=== PATIENT | male | born 1985 | race African-American/Black ===

== ENCOUNTER 2019-03-14 04:00 | Emergency (ER) | payer OTHER ==
[2019-03-14 04:19] VITALS: BP 113/68; PULSE 69; TEMP 98; BMI 24.0
[2019-03-14 05:47] LABS: INR 0.87 (0.83-1.09); PROTHROMBIN TIME (PATIENT) 10.3 SEC (9.7-13.0)
[2019-03-14] MEDS ORDERED: morphine SULFATE 4 MG/ML VIAL IVPUSH ONE (05:52)
[2019-03-14] MEDS ORDERED: morphine SULFATE 4 MG/ML VIAL ONE (05:54)
[2019-03-14 06:38] LABS: ANION GAP 5 MMOL/L (8-16); BASO % 0.4 % (0-2.0); CALCIUM 8.9 mg/dL (8.5-10.1); CHLORIDE 105 mmol/L (98-107); CO2 29 mmol/L (21-32); EOS % 1.6 % (0-4.5); GLUCOSE,RANDOM 90 mg/dL (74-106); HEMATOCRIT 40.3 % (35.4-49); HEMOGLOBIN 13.2 GM/dL (11.7-16.9); LYMPH % 30.7 % (8-40); MCHC 32.8 g/dl (32.0-35.9); MEAN CELL VOLUME 88.5 fl (80-96); MEAN PLT VOLUME 7.7 fl (7.5-11.1); NEUT % 60.3 % (42.8-82.8); PLATELET COUNT 197 K/MM3 (134-434); POTASSIUM 3.8 mmol/L (3.5-5.1); RBC 4.55 M/mm3 (4.00-5.60); RDW 13.7 % (11.9-15.9); SODIUM 139 mmol/L (136-145); WHITE BLOOD COUNT 5.7 K/mm3 (4.0-10.0)
[2019-03-14 06:39] LABS: ALBUMIN 4.3 g/dl (3.4-5.0); BLOOD UREA NITROGEN 9.9 mg/dL (7-18)
[2019-03-14 06:42] LABS: CREATININE 1.1 mg/dL (0.55-1.3); SGOT/AST 30 U/L (15-37); SGPT/ALT 26 U/L (13-61)
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
[2019-03-14 06:44] LABS: ALK PHOS 92 U/L (45-117); BILIRUBIN,TOTAL 0.4 mg/dL (0.2-1); TOT PROT 7.1 g/dl (6.4-8.2)
[2019-03-14] MEDS ORDERED: SODIUM CHLORIDE 1,000 ML IV STA (06:48)
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
[2019-03-14] MEDS ORDERED: ALBUTEROL SO4 2.5/IPRATROPIUM 0.5 INH SOL 3 ML VIAL.NEB. NEB ONE ×3 (07:54→08:45)
[2019-03-14] MEDS: ALBUTEROL SO4 2.5/IPRATROPIUM 0.5 INH SOL 3 ML VIAL.NEB. NEB SCH ×4 (08:00→08:44)
[2019-03-14] MEDS ORDERED: LIDOCAINE 5% TOPICAL PATCH TP ONE (09:10)
[2019-03-14] MEDS ORDERED: LIDOCAINE 5% TOPICAL PATCH ONE (09:23)
--- NOTE | 2019-03-14 13:49 | EKG ---
Test Reason : Blood Pressure : / mmHG Vent. Rate : 054 BPM Atrial Rate : 054 BPM P-R Int : 150 ms QRS Dur : 092 ms QT Int : 432 ms P-R-T Axes : 068 078 062 degrees QTc Int : 409 ms SINUS BRADYCARDIA EARLY REPOLARIZATION OTHERWISE NORMAL ECG NO PREVIOUS ECGS AVAILABLE Confirmed by MD ROBINSON, TRINITY ([id number]) on 03/14/2019 1:49:10 PM Referred By: Confirmed By:TRINITY BOWERS MD
[2019-03-14] MEDS ORDERED: LIDOCAINE PATCH REMOVAL MC SCH (22:00)
== END 2019-03-14 09:43 | disposition home or self-care (01) ==
LOC: JER 04:00
PROC: 3E0F7GC Introduction of Other Therapeutic Substance into Respiratory Tract, Via Natural or Artificial Opening (ICD-10-PCS; principal; 2019-03-14)
PROC: 3E033NZ Introduction of Analgesics, Hypnotics, Sedatives into Peripheral Vein, Percutaneous Approach (ICD-10-PCS; 2019-03-14)
PROC: 3E0337Z Introduction of Electrolytic and Water Balance Substance into Peripheral Vein, Percutaneous Approach (ICD-10-PCS; 2019-03-14)
DX: S22.39XA Fracture of one rib, unspecified side, initial encounter for closed fracture (principal); Y04.2XXA Assault by strike against or bumped into by another person, initial encounter; Y92.9 Unspecified place or not applicable; Y93.9 Activity, unspecified
CPT/HCPCS: 36415; 70450-TC; 71260-TC; 72125-TC; 74177-TC; 80053; 80307; 82550; 82553; 83605; 84484; 85025; 85610; 86850; 86900; 86901; 93005; 93010; 94640; 96361; 96374; 99284-25; J7030

== ENCOUNTER 2019-06-07 22:25 | Emergency (ER) | payer SELFPAY ==
[2019-06-07 22:34] VITALS: BP 118/63; PULSE 76; TEMP 98.7; BMI 20.9
--- NOTE | 2019-06-07 23:42 | PDOC ---
History of Present Illness - General Chief Complaint: Penile Drainage Stated Complaint: STD Time Seen by Provider: 06/07/19 23:14 History Source: Patient - History of Present Illness Initial Comments: 06/07/19 23:23 33 year old male c/o groin pain, testicular pain and penile discharge. patient here with girlfriend for a possible STD exposure. denies fever / chills. PMHX: asthma 06/08/19 00:48 Past History - Travel Traveled outside of the country in the last 30 days: Yes - Past Medical History Allergies/Adverse Reactions: Allergies Allergy/AdvReac Type Severity Reaction Status Date / Time No Known Allergies Allergy Verified 03/14/19 04:13 Home Medications: Ambulatory Orders Albuterol Sulfate Inhaler - [Ventolin HFA Inhaler -] 1 - 2 inh PO QID PRN #1 inhaler 03/14/19 Ibuprofen [Motrin -] 600 mg PO TID PRN #21 tablet 03/14/19 Oxycodone HCl/Acetaminophen [Percocet 5-325 mg Tablet] 1 tab PO Q6H PRN #12 tablet MDD 4 tabs 03/14/19 Asthma: Yes Cardiac Disorders: No COPD: No Diabetes: No GI Disorders: No HTN: No Psychiatric Problems: Yes (ADHD) Seizures: No - Reproductive History Testicular Surgery: No - Psycho Social/Smoking Cessation Hx Smoking History: Current every day smoker Have you smoked in the past 12 months: Yes Number of Cigarettes Smoked Daily: 4 Information on smoking cessation initiated: No 'Breaking Loose' booklet given: 07/04/12 Hx Alcohol Use: Yes Drug/Substance Use Hx: No Substance Use Type: None Review of Systems - Review of Systems Able to Perform ROS?: Yes Is the patient limited Martiniquais proficient: No Constitutional: No: Symptoms Reported, See HPI, Chills, Diaphoresis, Fever, Loss of Appetite, Malaise, Night Sweats, Weakness, Weight Stable, Unintentional Wgt. Loss, Unexplained wgt Loss, Other : Yes: Dysuria, Testicular Pain *Physical Exam - Vital Signs Last Vital Signs Temp Pulse Resp BP Pulse Ox 98.7 F 76 19 118/63 99 06/07/19 22:31 06/07/19 22:31 06/07/19 22:31 06/07/19 22:31 06/07/19 22:31 - Physical Exam General Appearance: Yes: Appropriately Dressed Respiratory/Chest: positive: Lungs Clear, Normal Breath Sounds Male Genitalia: positive: normal genitalia, other (clear penile discharge, b/l testicular tenderness, ) Musculoskeletal: positive: Normal Inspection Integumentary: positive: Normal Color, Dry, Warm Neurologic: positive: Fully Oriented, Alert, Normal Mood/Affect ED Progress Note - Progress Note Progress Note: 06/08/19 01:04 A: STD exposure P: scrotal US: negative GC UA URine culture urology follow up Discharge - Discharge Information Problems reviewed: Yes Clinical Impression/Diagnosis: Exposure to STD, Testicle pain - Follow up/Referral Referrals: Ronnell Murray MD [Staff Physician] - Call tomorrow - Patient Discharge Instructions Patient Printed Discharge Instructions: How to Detect and Treat STDs Additional Instructions: you were treated for possible chlamydia/gonorrhea exposure. Refrain from Having sex for one week. Your partner should also be treated. we will call you if you test results come back positive. - Post Discharge Activity Work/Back to School Note: Back to Work
[2019-06-08] MEDS ORDERED: AZITHROMYCIN 500 MG TABLET PO ONE (00:02)
[2019-06-08 00:03] LABS: PH,URINE 5.5 (5.0-8.0); URINE BILIRUBIN NEGATIVE (NEGATIVE); URINE COLOR YELLOW; URINE GLUCOSE (UA) NEGATIVE (NEGATIVE); URINE KETONE 1+ (NEGATIVE); URINE LEUK ESTERASE NEGATIVE (NEGATIVE); URINE NITRITE NEGATIVE (NEGATIVE); URINE PROTEIN TRACE (NEGATIVE)
[2019-06-08 00:09] LABS: URINE APPEARANCE CLEAR
[2019-06-08] MEDS ORDERED: AZITHROMYCIN 250 MG TABLET ONE (00:12)
[2019-06-08] MEDS ORDERED: LIDOCAINE HCL 1%, 10 MG/ML (20ML VIAL) ONE (00:12)
[2019-06-08] MEDS ORDERED: cefTRIAXone SODIUM 1 GM VIAL ONE (00:12)
== END 2019-06-08 01:16 | disposition home or self-care (01) ==
LOC: JER 22:25
DX: Z20.2 Contact with and (suspected) exposure to infections with a predominantly sexual mode of transmission (principal); N50.819 Testicular pain, unspecified; J45.909 Unspecified asthma, uncomplicated; F90.9 Attention-deficit hyperactivity disorder, unspecified type; F17.210 Nicotine dependence, cigarettes, uncomplicated
CPT/HCPCS: 36415; 76870-TC; 81003; 87086; 87491; 87591; 99281-25

== ENCOUNTER 2019-11-11 19:26 | Inpatient (IN) | payer OTHER ==
[2019-11-11] MEDS ORDERED: ONDANSETRON 4 MG/2 ML VIAL IVPUSH STA (19:48)
[2019-11-11] MEDS ORDERED: SODIUM CHLORIDE 0.9% 500 ML INFUS.BAG IV ONE (19:49)
--- NOTE | 2019-11-11 19:52 | PDOC ---
History of Present Illness - General Chief Complaint: Nausea/Vomiting Stated Complaint: POSSIBLE FOOD POISONING Time Seen by Provider: 11/11/19 19:44 History Source: Patient Exam Limitations: No Limitations, Clinical Condition - History of Present Illness Initial Comments: Odilon Good is a 34 yo M w a pmh of asthma who presents to the ER with 1 hour of nausea, vomiting, and diarrhea after he ate some chicken that his baked for him. Patient also admits to smoking K2 two hours prior to presentation, however this is normal for him and he does not believe it was laced with anything else. The patient states he felt fine in the hour after smoking K2, but then immediately after eating the chicken he started vomiting and shortly after experiencing watery diarrhea and profuse diaphoresis. The at bedside states she thinks it was fully cooked but is unsure. She states she did not eat the chicken, rather she ahd a burger. The grandma also ate the chicken and is not experiencing any vomiting or diarrhea. The patient also endorses left sided chest pain associated with this vomiting. He reports that taking a deep breath or vomiting hurts his chest tremendously. Denies fever, SOB, palpitation, dizziness, weakness, bladder and bowel problems, leg swelling, numbness or tingling, cough, runny nose, rash. No sick contacts or travel. No new changes in medications. PCP: [facility] [place] Allergies: NKA, NKDA PSH: None reported Social history: K2 use 2 hours ago. Daily tobacco use. Lives with family. No ETOH or illicit drug use. Past History - Past Medical History Allergies/Adverse Reactions: Allergies Allergy/AdvReac Type Severity Reaction Status Date / Time No Known Allergies Allergy Verified 03/14/19 04:13 Home Medications: Ambulatory Orders NK [No Known Home Medication] 02/01/19 Albuterol Sulfate Inhaler - [Ventolin HFA Inhaler -] 1 - 2 inh PO QID PRN #1 inhaler 03/14/19 Ibuprofen [Motrin -] 600 mg PO TID PRN #21 tablet 03/14/19 Oxycodone HCl/Acetaminophen [Percocet 5-325 mg Tablet] 1 tab PO Q6H PRN #12 tablet MDD 4 tabs 03/14/19 Ondansetron [Zofran -] 4 mg PO TID PRN #6 tablet 06/11/19 Asthma: Yes Cardiac Disorders: No COPD: No Diabetes: No GI Disorders: No HTN: No Psychiatric Problems: Yes (ADHD) Seizures: No - Reproductive History Testicular Surgery: No - Psycho Social/Smoking Cessation Hx Smoking History: Never smoked Have you smoked in the past 12 months: No Number of Cigarettes Smoked Daily: 20 'Breaking Loose' booklet given: 07/04/12 Hx Alcohol Use: No Drug/Substance Use Hx: No Substance Use Type: None Review of Systems - Review of Systems Able to Perform ROS?: Yes Comments:: CONSTITUTIONAL: Present: Chills, fatigue Absent: fever EYES: Absent: visual changes ENT: Absent: ear pain, no sore throat CARDIOVASCULAR: Present: Chest pain Absent: no palpitations RESPIRATORY: Absent: cough, no SOB GI: Present: Abdominal pain, nausea, vomiting, diarrhea Absent: no constipation GENITOURINARY: Absent: dysuria, no frequency, no hematuria MUSKULOSKELETAL: Absent: back pain, no arthralgia, no myalgia SKIN: Absent: rash NEURO: Absent: headache *Physical Exam - Physical Exam GENERAL: Patient appears uncomfortable. Profusely diaphoretic. retching at bedside. HEENT: Normocephalic, atraumatic. PERRL, EOM intact. CARDIOVASCULAR: Normal S1, S2. Regular rate and rhythm. PULMONARY: No evidence of respiratory distress. Lungs clear to auscultation bilaterally. No wheezing, rales or rhonchi. ABDOMEN: Soft, non-distended, non-tender. EXTREMITIES: Normal ROM in all four extremities. No gross deformities. SKIN: Profusely diaphoretic. Warm. No rash NEUROLOGICAL: No focal neurological deficits. ED Treatment Course - LABORATORY CBC & Chemistry Diagram: 11/12/19 11:03 11/12/19 11:03 Medical Decision Making - Medical Decision Making Odilon Good is a 34 yo M w a pmh of asthma who presents to the ER with 1 hour of nausea, vomiting, and diarrhea after he ate some chicken that his baked for him. Patient also admits to smoking K2 two hours prior to presentation, however this is normal for him and he does not believe it was laced with anything else. The patient states he felt fine in the hour after smoking K2, but then immediately after eating the chicken he started vomiting and shortly after experiencing watery diarrhea and profuse diaphoresis. The at bedside states she thinks it was fully cooked but is unsure. She states she did not eat the chicken, rather she ahd a burger. The grandma also ate the chicken and is not experiencing any vomiting or diarrhea. The patient also endorses left sided chest pain associated with this vomiting. He reports that taking a deep breath or vomiting hurts his chest tremendously. Vital Signs Temp Pulse Resp BP Pulse Ox 97.2 F L 60 20 110/74 97 11/11/19 19:50 11/11/19 19:50 11/11/19 19:50 11/11/19 19:50 11/11/19 19:50 DDx IBNLT: ACS, electrolyte/metabolic disturbance, drug abuse/use, food poisonin g, electrolyte/metabolic disturbance, dehydration Plan: Labs, EKG, CXR, urine drug screen, IV hydration, supportive treatments, re-assess EKG: Sinus bradycarda rate of 58, narrow complexes, normal axis, no hypertrophy, Diffuse ST elevations in a concave upwards pattern without any reciprocal depre ssions. These likely early repolarizations were all present in 06/11/19. QTc 426, NC 160. Labs: Unremarkable Urine: No infection, PCP pos on u-tox Re-assessment: patient has intractable vomiting despite reglan and zofran Disposition: Admission to hospital for intractable vomiting Discharge - Discharge Information Problems reviewed: Yes Clinical Impression/Diagnosis: Abdominal pain Qualifiers: Abdominal location: generalized Qualified Code(s): R10.84 - Generalized abdominal pain Vomiting Qualifiers: Vomiting type: unspecified Vomiting Intractability: non-intractable Nausea presence: unspecified Qualified Code(s): R11.10 - Vomiting, unspecified Condition: Improved Disposition: HOME - Admission No - Follow up/Referral - Patient Discharge Instructions - Post Discharge Activity
[2019-11-11] MEDS ORDERED: ACETAMINOPHEN 1000 MG/100 ML VIAL (NON FORMULARY) IVPB ONE (19:53)
--- NOTE | 2019-11-11 20:17 | PDOC ---
*Physical Exam - Vital Signs Last Vital Signs Temp Pulse Resp BP Pulse Ox 97.2 F L 60 20 110/74 97 11/11/19 19:50 11/11/19 19:50 11/11/19 19:50 11/11/19 19:50 11/11/19 19:50 ED Treatment Course - LABORATORY CBC & Chemistry Diagram: 11/11/19 20:15 11/11/19 20:15 Medical Decision Making - Medical Decision Making 11/11/19 20:15 34 y/o male here with chest pain, vomiting, diarrhea. States he smoked K2 and cocaine around 4 p.m. this evening. Symptoms started two hours prior to presentation. Partner @ bedside notes chicken was cut from a larger chicken today, she did not clean it. Patient's mother ate chicken as well w/o symptoms. 11/11/19 20:30 EKG w/benign early repolarization no ELIANA/STD/TWI 11/11/19 23:34 Troponin (-) Belly labs negative Leukocytosis (14.1) 11/11/19 23:38 Reassessed @ bedside, NBNB emesis. Will give Reglan 11/12/19 00:50 Reassessed @ bedside. Symptomatically improved, will PO challenge 11/12/19 02:54 Patient continues have NBNB emesis Will admit for intractable vomiting 11/12/19 02:58 Patient admitted to hospitalist service, Dr. Mann. Discharge - Discharge Information Problems reviewed: Yes Clinical Impression/Diagnosis: Abdominal pain Qualifiers: Abdominal location: generalized Qualified Code(s): R10.84 - Generalized abdominal pain Vomiting Qualifiers: Vomiting type: unspecified Vomiting Intractability: non-intractable Nausea presence: unspecified Qualified Code(s): R11.10 - Vomiting, unspecified Condition: Improved Disposition: HOME - Admission No - Follow up/Referral - Patient Discharge Instructions - Post Discharge Activity
[2019-11-11] MEDS ORDERED: ACETAMINOPHEN INJECTION 100 ML IVPB ONE (20:39)
[2019-11-11] MEDS ORDERED: ONDANSETRON 4 MG/2 ML VIAL ONE (20:39)
--- NOTE | 2019-11-11 21:02 | PDOC ---
Attending Attestation - Resident Resident Name: Jason Vincent - ED Attending Attestation I have performed the following: I have examined & evaluated the patient, The case was reviewed & discussed with the resident, I agree w/resident's findings & plan, Exceptions are as noted - HPI HPI: 11/11/19 23:38 See resident HPI - Physicial Exam PE: 11/11/19 23:38 Agree with documented exam - Medical Decision Making 11/11/19 23:38 34M acute onset of n/v, smoked K2 this evening, smokes regularly w/o GI issues usually, ate baked chicken that was eaten by other who do not have symptoms, no sick contacts, recent travel f/u labs IVF, symptomatic tx po challenge re-eval Symptomatically improved Failed PO challenge, pt unable to tolerate PO admit
[2019-11-11 21:12] LABS: BASO % 0.4 % (0-2.0); EOS % 0.2 % (0-4.5); HEMATOCRIT 44.1 % (35.4-49); HEMOGLOBIN 14.5 GM/dL (11.7-16.9); LYMPH % 17.8 % (8-40); MCH 29.6 pg (25.7-33.7); MCHC 32.8 g/dl (32.0-35.9); MEAN CELL VOLUME 90.3 fl (80-96); MEAN PLT VOLUME 7.7 fl (7.5-11.1); MONO % 7.5 % (3.8-10.2); NEUT % 74.1 % (42.8-82.8); PLATELET COUNT 251 K/MM3 (134-434); RBC 4.89 M/mm3 (4.00-5.60); RDW 13.4 % (11.9-15.9)
[2019-11-11 21:20] LABS: ALBUMIN 4.4 g/dl (3.4-5.0); ALK PHOS 92 U/L (45-117); ANION GAP 7 MMOL/L (8-16); BILIRUBIN,TOTAL 0.4 mg/dL (0.2-1); BLOOD UREA NITROGEN 17.5 mg/dL (7-18); CALCIUM 9.8 mg/dL (8.5-10.1); CHLORIDE 104 mmol/L (98-107); CO2 28 mmol/L (21-32); CREATININE 1.3 mg/dL (0.55-1.3); GLUCOSE,RANDOM 139 mg/dL (74-106); PHOSPHOROUS 2.4 mg/dL (2.5-4.9); POTASSIUM 3.7 mmol/L (3.5-5.1); SGOT/AST 30 U/L (15-37); SGPT/ALT 40 U/L (13-61); SODIUM 139 mmol/L (136-145); TOT PROT 7.5 g/dl (6.4-8.2)
[2019-11-11 21:24] LABS: INR 0.92 (0.83-1.09); PROTHROMBIN TIME (PATIENT) 10.8 SEC (9.7-13.0)
[2019-11-11] MEDS ORDERED: ALBUTEROL SO4 2.5/IPRATROPIUM 0.5 INH SOL 3 ML VIAL.NEB. NEB ONE ×3 (22:36→22:55)
[2019-11-11] MEDS ORDERED: METOCLOPRAMIDE HCL 10 MG TABLET (FP) PO ONE ×2 (23:44→23:49)
[2019-11-12 03:20] LABS: URINE APPEARANCE CLOUDY; URINE BILIRUBIN NEGATIVE (NEGATIVE); URINE COLOR YELLOW; URINE GLUCOSE (UA) NEGATIVE (NEGATIVE); URINE KETONE 1+ (NEGATIVE); URINE LEUK ESTERASE NEGATIVE (NEGATIVE); URINE NITRITE NEGATIVE (NEGATIVE); URINE PROTEIN TRACE (NEGATIVE)
[2019-11-12] MEDS ORDERED: ONDANSETRON 4 MG/2 ML VIAL IVPUSH PRN (03:47)
[2019-11-12 03:53] LABS: COCAINE, UR NEGATIVE ng/ml (CUTOFF=300); METHADONE, UR NEGATIVE ng/ml (CUTOFF=300); OPIATES, URI NEGATIVE ng/ml (CUTOFF=300); URINE AMPHETAMINES NEGATIVE ng/ml (CUTOFF=500); URINE BARBITURATES NEGATIVE ng/ml (CUTOFF=200); URINE BENZODIAZEPINES NEGATIVE ng/ml (CUTOFF=200)
--- NOTE | 2019-11-12 03:56 | HP ---
CHIEF COMPLAINT: Vomiting and Diarrhea PCP: None HISTORY OF PRESENT ILLNESS: 34M PMH Asthma who presents today with abdominal pain associated with nausea, vomiting, and diarrhea. Patient reports smoking K2 in the afternoon today, and an hour afterword he began having NBNB emesis and several episodes of diarrhea. He denies any blood in his emesis or stool. He reports eating baked chicken today, that his significant other prepared, however no one else is experiencing these symptoms. He is unable to give a clear timeline of events and description of events due to his pain. He has smoked K2 previously without similar effects. He endorses feeling light headed, chills, left sided chest pain, dysuria, and sh ortness of breath. He denies hematuria, urgency, frequency, fevers, and dizziness. ER course was notable for: (1) Reglan 10, and Zofran 4 were given. Patient initially stopped having emesis, but then after PO challenge he began vomiting again. (2) Patient was given 1 L NS (3) EKG was done- sinus bradycardia (Rate of 58) and QTc of 426 Recent Travel: Denies PAST MEDICAL HISTORY: Asthma FAMILY MEDICAL HISTORY: Denies PAST SURGICAL HISTORY: Denies Social History: Smokin pack year smoking history. currently smokes 1/2 pack daily. Alcohol: Social drinker Drugs: Cocaine and K2 use. Allergies No Known Allergies Allergy (Verified 03/14/19 04:13) Lactose intolerance. HOME MEDICATIONS: Home Medications Medication Instructions Recorded NK [No Known Home Medication] 02/01/19 Albuterol Sulfate Inhaler - 1 - 2 inh PO QID PRN #1 inhaler 03/14/19 [Ventolin HFA Inhaler -] Ibuprofen [Motrin -] 600 mg PO TID PRN #21 tablet 03/14/19 Oxycodone HCl/Acetaminophen 1 tab PO Q6H PRN #12 tablet MDD 4 03/14/19 [Percocet 5-325 mg Tablet] tabs Ondansetron [Zofran -] 4 mg PO TID PRN #6 tablet 06/11/19 REVIEW OF SYSTEMS CONSTITUTIONAL: Present: Chills Absent: fever, chills, diaphoresis, generalized weakness, malaise, loss of appetite, weight change HEENT: Absent: rhinorrhea, nasal congestion, throat pain, throat swelling, difficulty swallowing, mouth swelling, ear pain, eye pain, visual changes CARDIOVASCULAR: Present: chest pain Absent: chest pain, syncope, palpitations, irregular heart rate, lightheadedness, peripheral edema RESPIRATORY: Present: shortness of breath Absent: cough, shortness of breath, dyspnea with exertion, orthopnea, wheezing, stridor, hemoptysis GASTROINTESTINAL: Present: Abdominal pain, nausea, vomiting,diarrhea Absent: abdominal distension, constipation, melena, hematochezia GENITOURINARY: Present: dysuria Absent: frequency, urgency, hesitancy, hematuria, flank pain, genital pain MUSCULOSKELETAL: Absent: myalgia, arthralgia, joint swelling, back pain, neck pain SKIN: Absent: rash, itching, pallor HEMATOLOGIC/IMMUNOLOGIC: Absent: easy bleeding, easy bruising, lymphadenopathy, frequent infections ENDOCRINE: Absent: unexplained weight gain, unexplained weight loss, heat intolerance, cold intolerance NEUROLOGIC: Absent: headache, focal weakness or paresthesias, dizziness, unsteady gait, seizure, mental status changes, bladder or bowel incontinence PSYCHIATRIC: Absent: anxiety, depression, suicidal or homicidal ideation, hallucinations. PHYSICAL EXAMINATION Vital Signs - 24 hr 11/11/19 11/11/19 19:50 23:30 Temperature 97.2 F L Pulse Rate 60 Pulse Rate [ 58 L Left Radial] Respiratory 20 20 Rate Blood Pressure 110/74 Blood Pressure 129/74 [Left Arm] O2 Sat by Pulse 97 100 Oximetry (%) GENERAL: Awake, alert, and fully oriented, in significant pain. HEAD: Normal with no signs of trauma. EYES: Extraocular movements intact, sclera anicteric, NECK: Normal range of motion, supple without lymphadenopathy, JVD, or masses. LUNGS: CTAB. HEART: Regular rate and rhythm, normal S1 and S2 without murmur, rub or gallop. ABDOMEN: Tender to palpation in right and left lower quadrant, and left upper quadrant. Normoactive bowel sounds. Non distended. UPPER EXTREMITIES: 2+ pulses, warm, well-perfused. No cyanosis. No clubbing. No peripheral edema. LOWER EXTREMITIES: 2+ pulses, warm, well-perfused. No calf tenderness. No peripheral edema. NEUROLOGICAL: Cranial nerves II-XII intact. Normal speech. Normal gait. PSYCHIATRIC: Cooperative. Good eye contact. Appropriate mood and affect. SKIN: Warm, dry, normal turgor, no rashes or lesions noted, normal capillary refill. Laboratory Results - last 24 hr 11/11/19 11/11/19 11/11/19 02:00 02:00 20:15 WBC 14.0 H RBC 4.89 Hgb 14.5 Hct 44.1 MCV 90.3 MCH 29.6 MCHC 32.8 RDW 13.4 D Plt Count 251 D MPV 7.7 Absolute Neuts (auto) 10.3 H Neutrophils % 74.1 Lymphocytes % 17.8 Monocytes % 7.5 Eosinophils % 0.2 Basophils % 0.4 Nucleated RBC % 0 PT with INR INR PTT (Actin FS) Sodium Potassium Chloride Carbon Dioxide Anion Gap BUN Creatinine Est GFR (CKD-EPI)AfAm Est GFR (CKD-EPI)NonAf Random Glucose Calcium Phosphorus Magnesium Total Bilirubin AST ALT Alkaline Phosphatase Troponin I Total Protein Albumin Urine Color Yellow Urine Appearance Cloudy Urine pH 8.0 D Ur Specific [place] 1.036 H Urine Protein Trace Urine Glucose (UA) Negative Urine Ketones 1+ H Urine Blood Negative Urine Nitrite Negative Urine Bilirubin Negative Urine Urobilinogen 1.0 Ur Leukocyte Esterase Negative Salicylates Opiates Screen Negative Methadone Screen Negative Acetaminophen Barbiturate Screen Negative Ur Amphetamines Screen Negative MDMA (Ecstasy) Screen Negative Benzodiazepines Screen Negative Cocaine Screen Negative U Marijuana (THC) Screen Negative Alcohol, Quantitative 11/11/19 11/11/19 11/11/19 20:15 20:15 20:15 WBC RBC Hgb Hct MCV MCH MCHC RDW Plt Count MPV Absolute Neuts (auto) Neutrophils % Lymphocytes % Monocytes % Eosinophils % Basophils % Nucleated RBC % PT with INR 10.80 INR 0.92 PTT (Actin FS) 27.0 Sodium 139 Potassium 3.7 Chloride 104 Carbon Dioxide 28 Anion Gap 7 L BUN 17.5 Creatinine 1.3 Est GFR (CKD-EPI)AfAm 81.93 Est GFR (CKD-EPI)NonAf 70.69 Random Glucose 139 H Calcium 9.8 Phosphorus 2.4 L Magnesium Total Bilirubin 0.4 AST 30 ALT 40 Alkaline Phosphatase 92 Troponin I < 0.02 Total Protein 7.5 Albumin 4.4 Urine Color Urine Appearance Urine pH Ur Specific [place] Urine Protein Urine Glucose (UA) Urine Ketones Urine Blood Urine Nitrite Urine Bilirubin Urine Urobilinogen Ur Leukocyte Esterase Salicylates Opiates Screen Methadone Screen Acetaminophen Barbiturate Screen Ur Amphetamines Screen MDMA (Ecstasy) Screen Benzodiazepines Screen Cocaine Screen U Marijuana (THC) Screen Alcohol, Quantitative < 3 11/11/19 11/11/19 11/11/19 20:15 22:01 22:01 WBC RBC Hgb Hct MCV MCH MCHC RDW Plt Count MPV Absolute Neuts (auto) Neutrophils % Lymphocytes % Monocytes % Eosinophils % Basophils % Nucleated RBC % PT with INR INR PTT (Actin FS) Sodium Potassium Chloride Carbon Dioxide Anion Gap BUN Creatinine Est GFR (CKD-EPI)AfAm Est GFR (CKD-EPI)NonAf Random Glucose Calcium Phosphorus Magnesium 2.0 Total Bilirubin AST ALT Alkaline Phosphatase Troponin I < 0.02 Total Protein Albumin Urine Color Urine Appearance Urine pH Ur Specific [place] Urine Protein Urine Glucose (UA) Urine Ketones Urine Blood Urine Nitrite Urine Bilirubin Urine Urobilinogen Ur Leukocyte Esterase Salicylates 4.1 Opiates Screen Methadone Screen Acetaminophen 7.8 Barbiturate Screen Ur Amphetamines Screen MDMA (Ecstasy) Screen Benzodiazepines Screen Cocaine Screen U Marijuana (THC) Screen Alcohol, Quantitative ASSESSMENT/PLAN: 34M PMH Asthma who presents today with abdominal pain associated with nausea, vomiting, and diarrhea. 1) Intractable Vomiting - Likely due to gastroenteritis vs cannabinoid hyperemesis vs possible nephroliathiasis - Endorses only use of K2 today, however utox shows PCP. - Has not been able to tolerate PO intake in the ED - Troponin negative x1, repeat in AM - Lipase negative - U/A shows negative of bacteria and blood. - CT Abdomen/ Pelvis - Protonix 40 mg IV Daily - Zofran 4 mg IV Q4H PRN - Acetaminophen 1000 mg IV Q6H PRN - NS @ 100 ml/hr - Clear liquid diet,advance as tolerated or make NPO. 2) Hx of Asthma - Currently not SOB, given Duonebs in ED - Continue to monitor DVT: SCD's, Early ambulation F: NS @ 100 ml/hr E: Monitor BMP N: Clears, advance as tolerated Visit type - Emergency Visit Emergency Visit: Yes ED Registration Date: 11/12/19 Care time: The patient presented to the Emergency Department on the above date and was hospitalized for further evaluation of their emergent condition. - New Patient This patient is new to me today: Yes Date on this admission: 11/12/19 - Critical Care Critical Care patient: No ATTENDING PHYSICIAN STATEMENT I saw and evaluated the patient. I reviewed the resident's note and discussed the case with the resident. I agree with the resident's findings and plan as documented. SUBJECTIVE: OBJECTIVE: ASSESSMENT AND PLAN:
[2019-11-12 03:59] LABS: PHENCYCLIDINE,URINE POSITIVE ng/ml (CUTOFF=25)
[2019-11-12] MEDS ORDERED: ACETAMINOPHEN 1000 MG/100 ML VIAL (NON FORMULARY) IVPB PRN (04:01)
[2019-11-12] MEDS: SODIUM CHLORIDE 1,000 ML IV SCH ×2 (04:24→17:52)
[2019-11-12] MEDS ORDERED: POTASSIUM PHOSPHATE 15 MM in SODIUM CHLORIDE 250 ML IVPB ONE (04:26)
--- NOTE | 2019-11-12 04:47 | PN ---
Teaching Attending Note Name of Resident: Darcie Brewer ATTENDING PHYSICIAN STATEMENT I saw and evaluated the patient. I reviewed the resident's note and discussed the case with the resident. I agree with the resident's findings and plan as documented. SUBJECTIVE: 34-year-old male with a history of asthma presents complaining of nausea, vomi ting and diarrhea for less than 1 day after he ate chicken, was smoking K2 prior to onset of symptoms. EKG showed some early repolarization's, troponin was negative. Patient continue to have nonbilious nonbloody emesis in the emergency room and was thought to have intractable vomiting. In the emergency room patient was given Reglan, Zofran, IV fluid hydration. Patient was complaining of severe abdominal pain. OBJECTIVE: Last Vital Signs Temp Pulse Resp BP Pulse Ox 97.2 F L 58 L 20 129/74 100 11/11/19 19:50 11/11/19 23:30 11/11/19 23:30 11/11/19 23:30 11/11/19 23:30 On physical exam patient was in some distress, nontoxic-appearing however diaphoretic. Head was negative for any trauma, was normocephalic. Chest was clear to auscultation bilaterally. Cardiovascular exam was S1, S2 with regular rate and rhythm. Abdomen was soft, nontender. Lower extremities did not have any pedal edema Abnormal Lab Results 11/11/19 11/11/19 11/11/19 02:00 02:00 20:15 WBC 14.0 H Absolute Neuts (auto) 10.3 H Anion Gap Random Glucose Phosphorus Ur Specific [place] 1.036 H Urine Ketones 1+ H Phencyclidine Screen Positive A* 11/11/19 11/11/19 20:15 20:15 WBC Absolute Neuts (auto) Anion Gap 7 L Random Glucose 139 H Phosphorus 2.4 L Ur Specific [place] Urine Ketones Phencyclidine Screen Chest x-ray reviewed EKG showed sinus bradycardia no acute ischemic changes. Possible early repolarization. ASSESSMENT AND PLAN: 34-year-old male with acute onset of vomiting following chicken meal and K2 smoking. PCP positive on urine toxicology screen. Possible gastroenteritis secondary to food poisoning versus drug toxicity. Severe abdominal pain warrants imaging as well as lipase. Admit to MedSurg IV fluid hydration Abdomen and pelvis CT without contrast patient has DEANN Supplement phosphorus #Asthma exacerbation Prednisone 40 mg daily DuoNebs 6 hours #Polysubstance abuse with PCP Check CK to rule out rhabdomyolysis Continue IV fluid hydration #DEANN IV fluid hydration avoid nephrotoxins #Leukocytosissuspect may be reactive secondary to vomiting. Should rule out intra-abdominal pathology in light of diarrhea and severe pain Monitor off antibiotics at this time Repeat CBC Follow-up abdominal CT results DVT prophylaxisheparin subcutaneously
[2019-11-12 05:00] LABS: LIPASE 35 U/L (73-393)
[2019-11-12] MEDS ORDERED: ALBUTEROL SO4 2.5/IPRATROPIUM 0.5 INH SOL 3 ML VIAL.NEB. NEB PRN (06:07)
[2019-11-12 09:31] VITALS: BMI 22.6
[2019-11-12] MEDS: PANTOPRAZOLE SODIUM 40 MG VIAL IVPUSH SCH (09:33)
--- NOTE | 2019-11-12 11:12 | EKG ---
Test Reason : Blood Pressure : / mmHG Vent. Rate : 058 BPM Atrial Rate : 058 BPM P-R Int : 160 ms QRS Dur : 108 ms QT Int : 434 ms P-R-T Axes : 071 079 057 degrees QTc Int : [address] ELEVATION, CONSIDER EARLY REPOLARIZATION WHEN COMPARED WITH ECG OF 14-MAR-2019 07:15, NO SIGNIFICANT CHANGE WAS FOUND Confirmed by NELIA KWAN MD ([id number]) on 11/12/2019 11:12:16 AM Referred By: Confirmed By:NELIA KWAN MD
[2019-11-12 11:32] LABS: BASO % 0.1 % (0-2.0); HEMATOCRIT 40.9 % (35.4-49); HEMOGLOBIN 13.6 GM/dL (11.7-16.9); LYMPH % 7.4 % (8-40); MCH 29.7 pg (25.7-33.7); MCHC 33.3 g/dl (32.0-35.9); MEAN CELL VOLUME 89.1 fl (80-96); MEAN PLT VOLUME 7.5 fl (7.5-11.1); MONO % 4.5 % (3.8-10.2); PLATELET COUNT 230 K/MM3 (134-434); RBC 4.59 M/mm3 (4.00-5.60); RDW 13.5 % (11.9-15.9); WHITE BLOOD COUNT 8.3 K/mm3 (4.0-10.0)
[2019-11-12 12:22] LABS: ANION GAP 9 MMOL/L (8-16); BLOOD UREA NITROGEN 15.7 mg/dL (7-18); CALCIUM 8.9 mg/dL (8.5-10.1); CHLORIDE 101 mmol/L (98-107); CO2 27 mmol/L (21-32); GLUCOSE,RANDOM 126 mg/dL (74-106); LIPASE 194 U/L (73-393); POTASSIUM 4.2 mmol/L (3.5-5.1); SODIUM 137 mmol/L (136-145)
[2019-11-12 12:23] LABS: CREATININE 1.1 mg/dL (0.55-1.3); PHOSPHOROUS 3.1 mg/dL (2.5-4.9)
--- NOTE | 2019-11-12 13:58 | PN ---
Physical Exam: SUBJECTIVE: Patient seen and examined at bedside.pt was vomiting . pt states he was fine for a few hours then became nauseated again and vomiting. >3 x this am OBJECTIVE: Vital Signs Period Temp Pulse Resp BP Sys/Burden Pulse Ox Last 24 Hr 97.2 F-98.6 F 58-65 16-20 110-133/69-83 97-100 GENERAL: The patient is awake, alert, and fully oriented, in no acute distress. HEAD: Normal with no signs of trauma. LUNGS: Breath sounds equal, clear to auscultation bilaterally, no wheezes, no crackles, no accessory muscle use. HEART: Regular rate and rhythm, S1, S2 without murmur, rub or gallop. ABDOMEN: Soft, ttp at LLQ RUQ and Epigastric region. nondistended, normoactive bowel sounds, no guarding EXTREMITIES: 2+ pulses, warm, well-perfused, no edema. SKIN: Warm, dry, normal turgor, no rashes or lesions noted Rectal:pt refused CBC, BMP 11/12/19 11:03 11/12/19 11:03 Active Medications Generic Name Dose Route Start Last Admin Trade Name Freq PRN Reason Stop Dose Admin Acetaminophen 1,000 mg 11/12/19 04:01 11/12/19 08:30 Ofirmev Injection - IVPB 11/13/19 04:01 1,000 mg Q6H PRN Administration PAIN LEVEL 6-10 Albuterol/Ipratropium 1 amp 11/12/19 06:07 11/12/19 06:27 Duoneb - NEB 1 amp Q4H PRN Administration SHORTNESS OF BREATH Sodium Chloride 1,000 mls @ 100 mls/hr 11/12/19 04:00 11/12/19 04:24 Normal Saline - IV 100 mls/hr ASDIR STEVE Administration Ondansetron HCl 4 mg 11/12/19 03:47 11/12/19 08:33 Zofran Injection IVPUSH 4 mg Q4H PRN Administration NAUSEA Pantoprazole Sodium 40 mg 11/12/19 10:00 11/12/19 09:33 Protonix Iv IVPUSH 40 mg DAILY STEVE Administration ASSESSMENT/PLAN: 34M PMH Asthma who presents with abdominal pain associated with nausea, vomiti ng, and diarrhea. Intractable Vomiting/ gastroparesis - Likely due to viral vs cannabinoid hyperemesis? - Utox positive for PCP - multiple episodes of n/v. unable to tolerate PO today - CT abdomen/ pelvis: Interval decrease in number of previously described hyperdensities within the stomach lumen. There are now likely 3 hyperdense foci seen layering within the junction of the gastric fundus and body. Differential diagnosis includes a small pieces of ingested bone or medication pills. Correlate clinically. No free air or free fluid are identified within the abdomen and pelvis. - Protonix 40 mg IV Daily - Zofran 4 mg IV Q4H PRN alternate with compazine - Acetaminophen 1000 mg IV Q6H PRN - NS @ 100 ml/hr - went for EGD today, no foreign object found. pt on low/ intermittent suction. will be revaluated will clamp suction/ remove NGT and start clears. if high output will continue NGT with low /intermittent suction Hx of Asthma - Currently not SOB, given Duonebs in ED - Continue to monitor DVT: SCD's, Early ambulation F: NS @ 100 ml/hr E: Monitor BMP N: NPO Visit type - Emergency Visit Emergency Visit: No - New Patient This patient is new to me today: No - Critical Care Critical Care patient: No - Discharge Referral Referred to [facility] Yes Physician Referral: Dax Salamanca DO (GI) ATTENDING PHYSICIAN STATEMENT I saw and evaluated the patient. I reviewed the resident's note and discussed the case with the resident. I agree with the resident's findings and plan as documented. SUBJECTIVE: OBJECTIVE: ASSESSMENT AND PLAN:
--- NOTE | 2019-11-12 14:07 | CON.GI ---
Consult Consult Specialty:: GI Referred by:: Hospitalist Service Reason for Consultation:: Vomiting and foreign body in stomach - History of Present Illness Chief Complaint: vomiting History of Present Illness: 34M admittted for evaluation of vomiting. States that he "smoked a cigarette someone gave him that may have had K2 in it, felt fucked up and ate chicken". The chicken may have had bones. He was then having episodes of vomiting. CT scan revealed retained food in the stomach and bony densities in the stomach that could represent teeth. That study was performed 5:30 in the morning. He denies having lost any teeth recently. He vomited 800cc since being admitted to the floor. Urine tox positive for PCP. complains of abdominal pain. No diarrhea. - History Source History Provided By: Patient, Medical Record - Past Medical History Pulmonary: Yes: Asthma - Past Surgical History Additional Surgical History: surgery on scalp after accident - Alcohol/Substance Use Hx Alcohol Use: No History of Substance Use: reports: Marijuana (also abuses K-2, synthetic marijuana) - Smoking History Smoking history: Current some day smoker Have you smoked in the past 12 months: No Aproximately how many cigarettes per day: 20 - Social History ADL: Independent Place of : [facility] History of Recent Travel: No Home Medications - Allergies Allergies/Adverse Reactions: Allergies Allergy/AdvReac Type Severity Reaction Status Date / Time No Known Allergies Allergy Verified 03/14/19 04:13 - Home Medications Home Medications: Ambulatory Orders NK [No Known Home Medication] 02/01/19 Albuterol Sulfate Inhaler - [Ventolin HFA Inhaler -] 1 - 2 inh PO QID PRN #1 inhaler 03/14/19 Ibuprofen [Motrin -] 600 mg PO TID PRN #21 tablet 03/14/19 Oxycodone HCl/Acetaminophen [Percocet 5-325 mg Tablet] 1 tab PO Q6H PRN #12 tablet MDD 4 tabs 03/14/19 Ondansetron [Zofran -] 4 mg PO TID PRN #6 tablet 06/11/19 Family Medical History Family History: Unremarkable Review of Systems - Review of Systems Cardiovascular: denies: Chest Pain Respiratory: denies: SOB Gastrointestinal: reports: Abdominal Pain, Nausea, Vomiting. denies: Melena Physical Exam-GI Vital Signs: Vital Signs Temperature 98.6 F 03/06/20 09:24 Pulse Rate 63 11/12/19 09:24 Respiratory Rate 20 11/12/19 09:24 Blood Pressure 130/69 11/12/19 09:24 O2 Sat by Pulse Oximetry (%) 100 11/12/19 09:30 Constitutional: Yes: Calm Eyes: No: Sclera Icterus Cardiovascular: Yes: Regular Rate and Rhythm Respiratory: Yes: CTA Bilaterally Gastrointestinal Inspection: No: Distention ...Auscultate: Yes: Normoactive Bowel Sounds ...Palpate: Yes: Soft, Tenderness (TTP mid abdomen). No: Hepatomegaly, Splenomegaly ...Percussion: No: Tympanitic Labs: CBC, BMP 11/12/19 11:03 11/12/19 11:03 INR, PTT INR 0.92 (0.83-1.09) 11/11/19 20:15 Problem List - Problems (1) Vomiting Assessment/Plan: ? if related to whatever he smoked prior to eating. Urine tox + for PCP Ordered repeat CT scan to evaluate if there is still suggestion of fer foreign body in his stomach. He does believes that the chicken he ate may have had bones. If so, discussed possible upper endoscopy to evaluate further and extract foreign body if necessary. Discussed potential risks of the the proce dure like but not limited to bleeding, perforation requiring surgery to repair, infection, sedation medication effects all of which could be potentially life threatening. He has agreed to the procedure. Otherwise: Supportive measures Detox evaluation NPO IV hydration Code(s): R11.10 - VOMITING, UNSPECIFIED Qualifiers: Vomiting type: unspecified Vomiting Intractability: non-intractable Nausea presence: unspecified Qualified Code(s): R11.10 - Vomiting, unspecified
--- NOTE | 2019-11-12 14:43 | PN ---
Progress Note (short form) - Note Progress Note: D/W attending. Bone like densities persist in stomach. one is about 1cm in size. Stomach fluid filled. 1. NGT to decompress stomach 2. EGD to evaluate stomach once deompressed to make sure these are not sharp bone fragments lingering in his sstomach Problem List - Problems (1) Vomiting Code(s): R11.10 - VOMITING, UNSPECIFIED Qualifiers: Vomiting type: unspecified Vomiting Intractability: non-intractable Nausea presence: unspecified Qualified Code(s): R11.10 - Vomiting, unspecified
--- NOTE | 2019-11-12 15:04 | PN ---
Teaching Attending Note Name of Resident: Sharee Yen ATTENDING PHYSICIAN STATEMENT I saw and evaluated the patient. I reviewed the resident's note and discussed the case with the resident. I agree with the resident's findings and plan as documented. SUBJECTIVE: No fever or chills. cont to have N/v. abd pain in epigastric area. he does not remember if the chicken he ate has bones He did not feel well and did not want t participate further in the conversation OBJECTIVE: NAD, awake, alert, not completely cooperative. uses curing words during interview. MMM CV: RRR, no MRG Lungs: CTAB Abd: sot, ND, TTP in epigastric and RUQ and LUQ. tympanic in upper part of Abd. nl BS ASSESSMENT AND PLAN: 34 y/o man with h/o asthma, and drug abuse ( PCP , K2) , who presented with abd pain and N/V. 1- N/V/Abd pain : Cyclic vomiting from K2 use ( use QOD), or gastroparesis, or gastric outlet obstruction CT scan reviewed. GI consulted due to distended stomach and foreign bodies. repeat Ct scan is not read but still shows 2 of the 3 foreign bodies . ? chicken bones. EGD might be planned today NPO IVF zofran and add compazine 2- h/o Asthma : No wheezing. - cont inhalers . no need for steroids unless exam changes 3- leukocytosis : Possibly reactive. hold off Abx 4- DVT Px: start heparin after EGD SCDs for now
--- NOTE | 2019-11-12 16:29 | PN ---
Progress Note (short form) - Note Progress Note: EGD complete. Report left in procedural section of the physical chart and will be scanned into [employer]. Prior to EGD, NGT was placed. 900 CC of bilious fluid was removed. NGT was replaced after endoscopy was performed. Problem List - Problems (1) Vomiting Code(s): R11.10 - VOMITING, UNSPECIFIED Qualifiers: Vomiting type: unspecified Vomiting Intractability: non-intractable Nausea presence: unspecified Qualified Code(s): R11.10 - Vomiting, unspecified
[2019-11-13 06:37] LABS: HEMATOCRIT 42.4 % (35.4-49); HEMOGLOBIN 14.3 GM/dL (11.7-16.9); MCH 29.9 pg (25.7-33.7); MCHC 33.6 g/dl (32.0-35.9); MEAN CELL VOLUME 88.9 fl (80-96); MEAN PLT VOLUME 7.6 fl (7.5-11.1); PLATELET COUNT 231 K/MM3 (134-434); RBC 4.77 M/mm3 (4.00-5.60); RDW 13.6 % (11.9-15.9); WHITE BLOOD COUNT 9.8 K/mm3 (4.0-10.0)
[2019-11-13 07:02] LABS: ALBUMIN 3.7 g/dl (3.4-5.0); BILIRUBIN,TOTAL 0.9 mg/dL (0.2-1); BLOOD UREA NITROGEN 14.5 mg/dL (7-18); CALCIUM 8.6 mg/dL (8.5-10.1); MAGNESIUM 2.2 mg/dL (1.8-2.4); PHOSPHOROUS 2.5 mg/dL (2.5-4.9); TOT PROT 6.7 g/dl (6.4-8.2)
[2019-11-13] MEDS: PANTOPRAZOLE SODIUM 40 MG VIAL IVPUSH SCH (10:07)
[2019-11-13] MEDS: SODIUM CHLORIDE 1,000 ML IV SCH (10:07)
--- NOTE | 2019-11-13 11:52 | DS ---
Physical Exam: SUBJECTIVE: Patient seen and examined OBJECTIVE: Vital Signs Period Temp Pulse Resp BP Sys/Burden Pulse Ox Last 24 Hr 98.0 F-98.8 F 66-75 13-20 120-152/52-67 95-99 PHYSICAL EXAM GENERAL: The patient is awake, alert, and fully oriented, in no acute distress. HEAD: Normal with no signs of trauma. EYES: PERRL, extraocular movements intact, sclera anicteric, conjunctiva clear. ENT: Ears normal, nares patent, oropharynx clear without exudates, moist mucous membranes. NECK: Trachea midline, full range of motion, supple. LUNGS: Breath sounds equal, clear to auscultation bilaterally, no wheezes, no crackles, no accessory muscle use. HEART: Regular rate and rhythm, S1, S2 without murmur, rub or gallop. ABDOMEN: Soft, nontender, nondistended, normoactive bowel sounds, no guarding, no rebound, no hepatosplenomegaly, no masses. EXTREMITIES: 2+ pulses, warm, well-perfused, no edema. NEUROLOGICAL: Cranial nerves II through XII grossly intact. Normal speech, gait not observed. PSYCH: Normal mood, normal affect. SKIN: Warm, dry, normal turgor, no rashes or lesions noted. LABS Laboratory Results - last 24 hr 11/12/19 11/13/19 11/13/19 11:03 06:15 06:15 WBC 9.8 RBC 4.77 Hgb 14.3 Hct 42.4 MCV 88.9 MCH 29.9 MCHC 33.6 RDW 13.6 Plt Count 231 MPV 7.6 Sodium 137 139 Potassium 4.2 4.0 Chloride 101 106 Carbon Dioxide 27 27 Anion Gap 9 6 L BUN 15.7 14.5 Creatinine 1.1 1.0 Est GFR (CKD-EPI)AfAm 100.27 112.51 Est GFR (CKD-EPI)NonAf 86.51 97.08 Random Glucose 126 H 90 Calcium 8.9 8.6 Phosphorus 3.1 2.5 Magnesium 2.2 Total Bilirubin 0.9 AST 41 H ALT 43 Alkaline Phosphatase 83 Creatine Kinase 283 Creatine Kinase Index 0.7 CK-MB (CK-2) 2.1 Troponin I < 0.02 Total Protein 6.7 Albumin 3.7 Lipase 194 HOSPITAL COURSE: Date of Admission:11/12/19 Date of Discharge: 11/13/19 Discharge Summary Problems reviewed: Yes Reason For Visit: VOMITING Current Active Problems Alcohol abuse (Active) Abdominal pain (Acute) Asthma (Acute) Synthetic cannabinoid dependence (Acute) Vomiting (Acute) Condition: Improved - Instructions Diet, Activity, Other Instructions: You came in for abdominal pain, nausea and vomiting. We imaged your abdomen and found that you had an enlarged stomach filled with fluid and food contents. We believe this was because of recreational use of certain substances that caused decreased mobility of the muscles in your stomach. Please STOP using those substances. You were valuated by a Pastrycook'[employer] Assistant (GI doctor). We treated you by withholding by mouth intake, a nasogastric tube to suction out the stomach contents, pain medication, nausea medication, IV fluids and close monitoring of your blood. We performed and EGD(scope, looking into your esophagus and stomach) and did not find anything immediately wrong, we saw a pancreatic cyst (not harmful). We noticed that while you were in the hospital you were wheezing. We treated you with albuterol nebulizer treatments. We started you on some new medications Please take your Albuterol Inhaler EVERY 6 hours as needed for wheezing Please take your Symbicort Inhaler 2 Puffs, ONCE a day for 1 month. Please take Protonix 40 mg ONCE a day for 1 week. Please follow up with your Pastrycook'S Assistant, Dr. Huddleston, within 1 week. Please follow up with your Primary Care Physician within 1 week, if you do not have one we have provided [facility]. Please discuss Asthma at this time. Please return to the ED if you are having worsening abdominal pain, nause, vomiting, fever, chills, shortness of breath, chest pain or any concerning symptoms. Referrals: [facility] [place] [Provider Group] - 1 Week Rj Huddleston DO [Staff Physician] - 1 Week Disposition: HOME - Home Medications Comprehensive Discharge Medication List: Ambulatory Orders Albuterol Sulfate Inhaler - [Ventolin Hfa Inhaler -] 2 puff IH Q6H PRN #1 inhaler 11/13/19 Budesonide/Formeterol Fumarate [SYMBICORT 80/4.5mcg -] 2 inh PO DAILY #1 cannister 11/13/19 Pantoprazole Sodium [Protonix] 40 mg PO DAILY #7 tablet. 11/13/19 - Discharge Referral Referred to [facility] Med P.C.: Yes Physician Referral: Dax Huddleston DO (GI) ATTENDING PHYSICIAN STATEMENT I saw and evaluated the patient. I reviewed the resident's note and discussed the case with the resident. I agree with the resident's findings and plan as documented. SUBJECTIVE: OBJECTIVE: ASSESSMENT AND PLAN:
[2019-11-13 12:13] VITALS: PULSE 64; TEMP 98.4
--- NOTE | 2019-11-13 12:24 | PN ---
Teaching Attending Note Name of Resident: Kody Crum ATTENDING PHYSICIAN STATEMENT I saw and evaluated the patient. I reviewed the resident's note and discussed the case with the resident. I agree with the resident's findings and plan as documented. SUBJECTIVE: Denies abd pain , denies N/V. denies diarrhea ,. No feevr . He feels like a " new man " He wants to go home. OBJECTIVE: NAD, awake, alert, cooperative. MMM CV: RRR, no MRG Lungs: minimal wheezing at bases Abd: sot, ND, NT, NL BS. ASSESSMENT AND PLAN: 34 y/o man with h/o asthma, and drug abuse ( PCP , K2) , who presented with abd pain and N/V. 1- N/V/Abd pain: ? cyclic vomiting syndrome due to K2, ? transient gastroparesis, ? transient gastric outlet obstruction from a forgin body EGD report reviewed. No foreign bodies in stomach. small alceration due to NGT trauma. - NGT was removed last night and patient condition improved . he tolerated clears - will advance to regular diet - he was advised to avoid K2 and other drugs use - PPI . avoid NSAIDS 2- H/o Asthma: - prescribe ventolin and symbicort inhalers at dc . 3- Reactive leukocytosis: resolved. If he tolerates diet , he can be dc to home after lunch
--- NOTE | 2019-11-13 13:38 | DS ---
Physical Exam: SUBJECTIVE: Patient seen and examined. Pt. endorses marked improvement after NGT. Pt. able to tolerate clear liquids and is asking to go home. Pt. states that he got K2 from his usual location but that he thinks they cut the K2 with Cat nip. His dealer was recently caught with a hand gun and was incarcerated. Pt. endorses trying PCP from his girlfriend. Pt. just completed duoneb treatment for wheezing noted after EGD. Pt. had NGT removed last night as there was no gastric contents over 2 hours post EGD. OBJECTIVE: Vital Signs Period Temp Pulse Resp BP Sys/Burden Pulse Ox Last 24 Hr 98.0 F-98.8 F 64-75 13-20 120-152/52-70 95-99 PHYSICAL EXAM GENERAL: The patient is awake, alert, and fully oriented, in no acute distress. HEAD: Normal with no signs of trauma. LUNGS: Breath sounds equal, clear to auscultation bilaterally, wheezing present, no crackles, no accessory muscle use. HEART: Regular rate and rhythm, S1, S2 without murmur, ABDOMEN: Soft, non-tender to light palpation, nondistended, normoactive bowel sounds, no guarding EXTREMITIES: 2+ radial pulses, warm, well-perfused, no edema. SKIN: Warm, dry, normal turgor, no rashes or lesions noted LABS Laboratory Results - last 24 hr 11/13/19 11/13/19 06:15 06:15 WBC 9.8 RBC 4.77 Hgb 14.3 Hct 42.4 MCV 88.9 MCH 29.9 MCHC 33.6 RDW 13.6 Plt Count 231 MPV 7.6 Sodium 139 Potassium 4.0 Chloride 106 Carbon Dioxide 27 Anion Gap 6 L BUN 14.5 Creatinine 1.0 Est GFR (CKD-EPI)AfAm 112.51 Est GFR (CKD-EPI)NonAf 97.08 Random Glucose 90 Calcium 8.6 Phosphorus 2.5 Magnesium 2.2 Total Bilirubin 0.9 AST 41 H ALT 43 Alkaline Phosphatase 83 Total Protein 6.7 Albumin 3.7 HOSPITAL COURSE: Date of Admission:11/12/19 Date of Discharge: 11/13/19 Pt. is a 34 y.o. M w/ PMHx. of Asthma and Polysubstance use. presented to the ED for intractable nausea vomiting and abdominal pain. Pt. had CT A/P of the abdomen which showed dilated stomach with fluid and questionable bone like particles initially. Repeats scan showed decreased hyperdensities. Pt. was kept NPO and given Protonix IV, IVF and NGT(which initially drained ~800cc of fluid) and had EGD performed which was positive for food contents and a pancreatic cyst. Consult to GI (Dr. Huddleston) appreciated. Pt. developed wheezing and was treated with Duonebs. Pt. was discharged with albuterol inhaler and Symbicort as detailed below. Medication adjustments and hospital follow up were also as detailed below. Pt. was counselled extensively on ceasing from K2 and PCP use. Pt. agreed to cease. Hospital course discussed and agreed upon with patient and medical staff. Minutes to complete discharge: 35 Discharge Summary Problems reviewed: Yes Reason For Visit: VOMITING Current Active Problems Alcohol abuse (Active) Abdominal pain (Acute) Synthetic cannabinoid dependence (Acute) Vomiting (Acute) Asthma (Chronic) Condition: Improved - Instructions Diet, Activity, Other Instructions: You came in for abdominal pain, nausea and vomiting. We imaged your abdomen and found that you had an enlarged stomach filled with fluid and food contents. We believe this was because of recreational use of certain substances that caused decreased mobility of the muscles in your stomach. Please STOP using those substances. You were evaluated by a Operations Research [employer] Manager (GI doctor). We treated you by withholding by mouth intake, a nasogastric tube to suction out the stomach contents, pain medication, nausea medication, IV fluids and close monitoring of your blood. We performed and EGD(scope, looking into your esophagus and stomach) and did not find anything immediately wrong, we saw a pancreatic cyst (not harmful). We noticed that while you were in the hospital you were wheezing. We treated you with albuterol nebulizer treatments. We started you on some new medications Please take your Albuterol Inhaler EVERY 6 hours as needed for wheezing Please take your Symbicort Inhaler 2 Puffs, twice a day for 1 month. Please take Protonix 40 mg ONCE a day for 1 week. Please follow up with your Operations Research Group Manager, Dr. Huddleston, within 1 week. you also need further imaging and monitoring of the pancreatic cyst Please follow up with your Primary Care Physician within 1 week, if you do not have one we have provided [facility]. Please discuss Asthma at this time. Please return to the ED if you are having worsening abdominal pain, nause, vomiting, fever, chills, shortness of breath, chest pain or any concerning symptoms. Referrals: [facility] [place] [facility] [place] [Provider Group] - 1 Week Rj Huddleston DO [Staff Physician] - 1 Week Disposition: HOME - Home Medications Comprehensive Discharge Medication List: Ambulatory Orders Albuterol Sulfate Inhaler - [Ventolin Hfa Inhaler -] 2 puff IH Q6H PRN #1 inhaler 11/13/19 Budesonide/Formeterol Fumarate [SYMBICORT 80/4.5mcg -] 2 inh PO DAILY #1 cannister 11/13/19 Pantoprazole Sodium [Protonix] 40 mg PO DAILY #7 tablet. 11/13/19 This patient is new to me today: No Emergency Visit: Yes ED Registration Date: 11/12/19 Care time: The patient presented to the Emergency Department on the above date and was hospitalized for further evaluation of their emergent condition. Critical Care patient: No - Discharge Referral Referred to [facility] Med P.C.: Yes Physician Referral: Dax Huddleston DO (GI) ATTENDING PHYSICIAN STATEMENT I saw and evaluated the patient. I reviewed the resident's note and discussed the case with the resident. I agree with the resident's findings and plan as documented. SUBJECTIVE: OBJECTIVE: ASSESSMENT AND PLAN:
[2019-11-13 14:01] VITALS: BP 125/64
== END 2019-11-13 14:00 | disposition home or self-care (01) | DRG 249 ==
LOC: JER 19:26 → JERBED 11-12 03:01 → J6W 11-12 05:58 → J7W 11-12 06:01
PROVIDERS: ADMIT Internal Medicine; ATTEND Internal Medicine
PROC: 0D9670Z Drainage of Stomach with Drainage Device, Via Natural or Artificial Opening (ICD-10-PCS; 2019-11-12)
PROC: 0DP6X0Z Removal of Drainage Device from Stomach, External Approach (ICD-10-PCS; 2019-11-12)
PROC: 0DJ08ZZ Inspection of Upper Intestinal Tract, Via Natural or Artificial Opening Endoscopic (ICD-10-PCS; principal; 2019-11-12 15:00)
DX: R11.15 Cyclical vomiting syndrome unrelated to migraine (principal); N17.9 Acute kidney failure, unspecified; K86.2 Cyst of pancreas; K31.84 Gastroparesis; J45.901 Unspecified asthma with (acute) exacerbation; R00.1 Bradycardia, unspecified; D72.829 Elevated white blood cell count, unspecified; R11.2 Nausea with vomiting, unspecified; F19.20 Other psychoactive substance dependence, uncomplicated
CPT/HCPCS: 36415; 71045-TC-FY; 74176-TC; 80048; 80053; 80307; 81003; 82550; 82553; 83690; 83735; 84100; 84484; 85025; 85027; 85610; 85730; 87389; 93005; 93010; 94640; 99285-25; J0131; J7030

== ENCOUNTER 2021-12-10 22:34 | Inpatient (IN) | payer OTHER ==
[2021-12-11 00:08] VITALS: BMI 23.5
[2021-12-11] MEDS ORDERED: IBUPROFEN 400 MG TABLET (FP) PO PRN (00:40)
[2021-12-11] MEDS ORDERED: MAG HYDROX/AL HYDROX/SIMETH 30 ML UNIT-DOSE CUP PO PRN (00:40)
[2021-12-11] MEDS ORDERED: MAGNESIUM HYDROX 2400MG/30ML ORAL SUSPENSION 30 ML CUP PO PRN (00:40)
[2021-12-11] MEDS ORDERED: ACETAMINOPHEN 325 MG TABLET (FP) PO PRN ×2 (00:40)
[2021-12-11] MEDS ORDERED: NICOTINE 10 MG CARTRIDGE (INHALER) IH PRN (00:40)
[2021-12-11] MEDS ORDERED: DICYCLOMINE HCL 10 MG CAPSULE PO PRN (00:40)
[2021-12-11] MEDS ORDERED: LOPERAMIDE HCL 2 MG CAPSULE PO PRN (00:40)
[2021-12-11] MEDS ORDERED: ONDANSETRON *ODT* 4 MG TABLET SL PRN (00:40)
[2021-12-11] MEDS ORDERED: METHOCARBAMOL 500 MG TABLET PO PRN (00:40)
[2021-12-11] MEDS ORDERED: MAGNESIUM CITRATE 300 ML BOTTLE PO PRN (00:40)
[2021-12-11] MEDS ORDERED: MENTHOL/PHENOL 1 EACH UD MM PRN (00:40)
[2021-12-11] MEDS ORDERED: BISMUTH SUBSALICYLATE 524 MG/30 ML PO PRN (00:40)
[2021-12-11] MEDS ORDERED: chlordiazePOXIDE HCL 25 MG CAPSULE PO PRN (09:30)
[2021-12-11] MEDS ORDERED: NICOTINE 21 MG/24 HOURS TOPICAL PATCH TD SCH ×2 (10:00)
[2021-12-11] MEDS ORDERED: PRENATAL VITAMINS W/ FOLIC ACID TABLET (FP) PO SCH (10:00)
[2021-12-11] MEDS: chlordiazePOXIDE HCL 25 MG CAPSULE PO SCH ×3 (10:21→22:43)
[2021-12-11 14:29] LABS: HEMATOCRIT 39.8 % (35.4-49); HEMOGLOBIN 12.7 GM/dL (11.7-16.9); MCH 29.1 pg (25.7-33.7); MEAN CELL VOLUME 90.8 fl (80-96); PLATELET COUNT 306 10^3/uL (134-434); RBC 4.38 M/mm3 (4.00-5.60); RDW 14.1 % (11.9-15.9); WHITE BLOOD COUNT 6.6 K/mm3 (4.0-10.0)
[2021-12-11 14:45] LABS: CALCIUM 8.4 mg/dL (8.5-10.1)
[2021-12-11 14:46] LABS: ALBUMIN 3.1 g/dl (3.4-5.0); BLOOD UREA NITROGEN 22.2 mg/dL (7-18)
[2021-12-11 14:51] LABS: BILIRUBIN,TOTAL 0.2 mg/dL (0.2-1)
[2021-12-11] MEDS ORDERED: MELATONIN 5 MG TABLETS PO SCH (22:00)
[2021-12-11] MEDS ORDERED: THIAMINE HCL 100 MG TABLET (FP) PO SCH (22:00)
[2021-12-12] MEDS: chlordiazePOXIDE HCL 25 MG CAPSULE PO SCH (05:09)
[2021-12-12 09:07] VITALS: BP 142/69; PULSE 98; TEMP 98
[2021-12-13] MEDS ORDERED: chlordiazePOXIDE HCL 25 MG CAPSULE PO SCH (05:00)
[2021-12-14] MEDS ORDERED: chlordiazePOXIDE HCL 10 MG CAPSULE PO PRN
[2021-12-14] MEDS ORDERED: chlordiazePOXIDE HCL 10 MG CAPSULE PO SCH (05:00)
[2021-12-15] MEDS ORDERED: chlordiazePOXIDE HCL 10 MG CAPSULE PO SCH (05:00)
[2021-12-16] MEDS ORDERED: chlordiazePOXIDE HCL 10 MG CAPSULE PO ONE (05:00)
== END 2021-12-12 09:44 | disposition left against medical advice (07) | DRG 770 ==
LOC: YASAS 22:34 → Y3N 12-11 03:34
PROVIDERS: ADMIT Allergy & Immunology; ATTEND Allergy & Immunology
PROC: HZ2ZZZZ Detoxification Services for Substance Abuse Treatment (ICD-10-PCS; principal; 2021-12-11)
DX: F10.230 Alcohol dependence with withdrawal, uncomplicated (principal); F12.20 Cannabis dependence, uncomplicated; F17.210 Nicotine dependence, cigarettes, uncomplicated; J45.909 Unspecified asthma, uncomplicated; Z28.310 Unvaccinated for COVID-19
CPT/HCPCS: 36415; 80053; 85027; 86780; 87811; C9803-CS; U0003; U0005

== ENCOUNTER 2021-12-14 00:47 | Emergency (ER) | payer SELFPAY ==
[2021-12-14 01:30] VITALS: BP 165/93; PULSE 88; TEMP 97.6; BMI 27.5
[2021-12-14] MEDS ORDERED: ACETAMINOPHEN 500 MG TABLET (FP) PO ONE (01:47)
[2021-12-14] MEDS ORDERED: LIDOCAINE 5% TOPICAL PATCH TP ONE (01:48)
[2021-12-14] MEDS ORDERED: ALBUTEROL SO4 2.5/IPRATROPIUM 0.5 INH SOL 3 ML VIAL.NEB. NEB ONE (01:48)
[2021-12-14] MEDS ORDERED: LIDOCAINE 5% TOPICAL PATCH ONE (03:22)
[2021-12-14] MEDS ORDERED: ACETAMINOPHEN 325 MG TABLET (FP) ONE (03:22)
[2021-12-14] MEDS ORDERED: LIDOCAINE PATCH REMOVAL MC SCH (22:00)
== END 2021-12-14 05:07 | disposition home or self-care (01) ==
LOC: JER 00:47
DX: S06.0X0A Concussion without loss of consciousness, initial encounter (principal); Y00.XXXA Assault by blunt object, initial encounter
CPT/HCPCS: 70450-TC; 72125-TC; 99284-25

== ENCOUNTER 2023-02-19 15:01 | Emergency (ER) | payer OTHER ==
[2023-02-19 15:05] VITALS: BMI 20.2
[2023-02-19] MEDS ORDERED: MIDAZOLAM HCL 5 MG/1 ML Single Dose Vial IM ONE (15:06)
[2023-02-19] MEDS ORDERED: MIDAZOLAM HCL 5 MG/1 ML Single Dose Vial ONE ×2 (15:10→18:18)
[2023-02-19 16:22] LABS: BASO % 0.3 % (0-2.0); EOS % 0.2 % (0-4.5); HEMATOCRIT 44.1 % (35.4-49); HEMOGLOBIN 14.4 GM/dL (11.7-16.9); LYMPH % 18.1 % (8-40); MCH 28.9 pg (25.7-33.7); MCHC 32.7 g/dl (32.0-35.9); MEAN CELL VOLUME 88.5 fl (80-96); MEAN PLT VOLUME 7.5 fl (7.5-11.1); MONO % 7.6 % (3.8-10.2); NEUT % 73.8 % (42.8-82.8); PLATELET COUNT 261 10^3/uL (134-434); RBC 4.99 M/mm3 (4.00-5.60); RDW 13.1 % (11.9-15.9); WHITE BLOOD COUNT 6.7 K/mm3 (4.0-10.0)
[2023-02-19 16:24] LABS: CHLORIDE 102 mmol/L (98-107); POTASSIUM 4.2 mmol/L (3.5-5.1); SODIUM 139 mmol/L (136-145)
[2023-02-19 16:26] LABS: ALBUMIN 4.5 g/dl (3.4-5.0); ANION GAP 9 MMOL/L (8-16); BLOOD UREA NITROGEN 23.3 mg/dL (7-18); CALCIUM 9.7 mg/dL (8.5-10.1); CO2 27 mmol/L (21-32)
[2023-02-19 16:27] LABS: GLUCOSE,RANDOM 102 mg/dL (74-106)
[2023-02-19 16:30] LABS: CREATININE 1.1 mg/dL (0.55-1.3); SGOT/AST 33 U/L (15-37); SGPT/ALT 24 U/L (13-61)
[2023-02-19 16:31] LABS: BILIRUBIN,TOTAL 0.5 mg/dL (0.2-1); TOT PROT 7.7 g/dl (6.4-8.2)
[2023-02-19 16:32] LABS: ALK PHOS 78 U/L (45-117)
[2023-02-19] MEDS ORDERED: SODIUM CHLORIDE 1,000 ML IV STA (16:34)
[2023-02-19 17:55] VITALS: BP 128/78; PULSE 77; RESP 18; TEMP 98.4
[2023-02-19] MEDS ORDERED: MIDAZOLAM HCL 5 MG/1 ML Single Dose Vial IVPUSH ONE (18:17)
[2023-02-19 20:03] LABS: HIV INTERPRETATION NEGATIVE (NEGATIVE)
== END 2023-02-19 18:15 | disposition left against medical advice (07) ==
LOC: JER 15:01
PROC: 3E0337Z Introduction of Electrolytic and Water Balance Substance into Peripheral Vein, Percutaneous Approach (ICD-10-PCS; principal; 2023-02-19)
PROC: 3E023GC Introduction of Other Therapeutic Substance into Muscle, Percutaneous Approach (ICD-10-PCS; 2023-02-19)
DX: F16.121 Hallucinogen abuse with intoxication with delirium (principal); Z53.21 Procedure and treatment not carried out due to patient leaving prior to being seen by health care provider; R19.7 Diarrhea, unspecified; R11.10 Vomiting, unspecified; R00.0 Tachycardia, unspecified; R45.1 Restlessness and agitation; Z20.822 Contact with and (suspected) exposure to COVID-19
CPT/HCPCS: 0241U-QW; 36415; 80053; 80307; 82550; 82553; 85025; 87389; 93005; 93010; 99284-25

== ENCOUNTER 2023-07-05 17:13 | Emergency (ER) | payer OTHER ==
[2023-07-05 17:52] VITALS: BP 129/95; PULSE 78; RESP 19; TEMP 97.8; BMI 23.7
== END 2023-07-05 17:54 | disposition left against medical advice (07) ==
LOC: JER 17:13
DX: R55 Syncope and collapse (principal)
CPT/HCPCS: 93005; 93010; 99283-25